=== PATIENT | male | born 1955 | race American Indian/Alaskan Native ===

== ENCOUNTER 2019-01-04 08:10 | Day surgery (SDC) | payer MEDICARE ==
[~2019-01-04 08:10] MED LIST: ceFAZolin/Water 2 GM/20 ML 2 GM/20 ML SYRINGE IV NR
[2019-01-04] MEDS ORDERED: BACTERIOSTATIC SODIUM CHLORIDE 0.9% 30 ML VIAL INFILTRATI ONE (08:57)
[2019-01-04] MEDS ORDERED: SODIUM CHLORIDE 0.9% 1000 ML 1,000 ML ONE (08:57)
[2019-01-04] MEDS ORDERED: fentaNYL 100 MCG/2 ML INJ IV PRN (09:11)
--- NOTE | 2019-01-04 09:27 | Anesthesia Day of Surgery ---
Anesthesia Day of Surgery - Day of Surgery Patient Examined: Yes Patient H&P Reviewed: Yes Patient is NPO: Yes
--- NOTE | 2019-01-04 09:27 | Anesthesia Consultation ---
Anesthesia Consult and Med Hx Date of service: 01/04/19 - Airway Anesthetic Teeth Evaluation: Poor (2 lower canines remaining; significant decay noted) ROM Head & Neck: Inadequate (moderately restricted extension) Mental/Hyoid Distance: Adequate Mallampati Class: Class III Intubation Access Assessment: Possibly Difficult - Pulmonary Exam CTA: Yes - Cardiac Exam Cardiac Exam: RRR - Pre-Operative Health Status ASA Pre-Surgery Classification: ASA4 Proposed Anesthetic Plan: General - Pulmonary Hx Smoking: Yes (quit x2wks; prev 1pk per week) SOB: Yes (with activity; chronic.. Denies orthopnea or dyspnea at rest.) Home Oxygen Therapy: No - Cardiovascular System Hx Hypertension: Yes (prior hx; currently has midodrine on med list) Hx Heart Attack/AMI: No Hx Angina: No Hx Percutaneous Transluminal Coronary Angioplasty (PTCA): No Hx Cardia Arrhythmia: No Hx Pacemaker: No Hx Internal Defibrillator: No - Central Nervous System Hx Seizures: No CVA: No Hx Psychiatric Problems: Yes (dementia) - Gastrointestinal Hx Gastroesophageal Reflux Disease: No - Endocrine Hx End Stage Renal Disease: Yes (last HD 01/03) Hx Liver Disease: No Hx Insulin Dependent Diabetes: No Hx Non-Insulin Dependent Diabetes: No Hx Hypothyroidism: Yes - Hematic Hx Anemia: Yes - Other Systems Hx Obesity: Yes - Additional Comments Anesthesia Medical History Comments: No hx anesthetic complications. Poor historian. Denies symptoms of current HF exacerbation. Will give AM dose midodrine.
[2019-01-04] MEDS ORDERED: MIDODRINE 5 MG TAB PO ONE (09:30)
[2019-01-04] MEDS ORDERED: SODIUM CHLORIDE 0.9% 500 ML 500 ML ONE (09:39)
[2019-01-04] MEDS ORDERED: BUPIVACAINE/PF (0.5%) 5 MG/1 ML 30 ML VIAL INFILTRATI ONE ×2 (09:39→14:34)
[2019-01-04] MEDS ORDERED: HEPARIN 10,000 UNITS/10 ML VIAL ONE (09:39)
[2019-01-04 09:51] LABS: Calcium 8.1 mg/dL (8.4-10.2)
[2019-01-04 09:53] LABS: Hematocrit 31.2 % (35.5-45.6); Mean Corpuscular HGB Conc 32 % (32-34); Mean Corpuscular Volume 87 fl (84-94); Platelet Count 278 K/mm3 (140-440); Red Cell Distribution Width 18.3 % (13.2-15.2)
[2019-01-04] MEDS ORDERED: SODIUM CHLORIDE 0.9% 1000 ML 1,000 ML IV SCH (10:00)
[2019-01-04 10:47] LABS: Basophils % (Manual) 0 % (0.0-1.8); Total Cells Counted 100
[2019-01-04 10:48] LABS: Anisocytosis 1+; Hypochromasia 1+; Ovalocytes 1+; Platelet Estimate Consistent w Auto; Poikilocytosis 1+; Tear Drop Cells Rare
[2019-01-04] MEDS ORDERED: fentaNYL 100 MCG/2 ML INJ ONE (12:28)
[2019-01-04] MEDS ORDERED: PROPOFOL 200 MG/20 ML VIAL IV ONE (12:29)
[2019-01-04] MEDS ORDERED: LIDOCAINE MPF (2%) 20 MG/1 ML VIAL 5 ML ONE (12:29)
[2019-01-04] MEDS ORDERED: HEPARIN 5,000 UNIT/1 ML VIAL ONE (12:30)
[2019-01-04] MEDS ORDERED: SODIUM CHLORIDE P/F VIAL 10 ML 10 ML ONE (14:32)
[2019-01-04] MEDS ORDERED: SODIUM CHLORIDE 0.9% 250ML 250 ML ONE (14:33)
[2019-01-04] MEDS ORDERED: rifAMPin 600 MG VIAL ONE (14:33)
[2019-01-04] MEDS ORDERED: HEPARIN 5,000 UNIT/1 ML VIAL IR ONE (14:33)
[2019-01-04] MEDS ORDERED: SODIUM CHLORIDE 0.9% IRR 1,000 ML BOTTLE IR ONE (14:33)
[2019-01-04] MEDS ORDERED: rifAMPin 600 MG VIAL IV ONE (14:35)
[2019-01-04] MEDS ORDERED: SODIUM CHLORIDE 0.9% P/F 10 ML VIAL IV ONE (14:36)
--- NOTE | 2019-01-04 14:46 | Fluoroscopy Report ---
Single fluoroscopic image submitted Indication: Intraoperative localization Impression: A single image of the abdomen was submitted for documentation purposes with radiology in volvement. PermCath catheter placement in the right groin with tip terminating at the level of T9/10 . Please refer to operative note for complete details. Fluoroscopic time: 11 seconds Number of fluoroscopic images: 1 Signer Name: Ebenezer Mondragon MD Signed: 01/04/2019 2:41 PM Workstation Name: [id number]
[2019-01-04] MEDS ORDERED: SODIUM CHLORIDE 0.9% IRR 1,500 ML BOTTLE IR ONE (15:10)
[2019-01-04] MEDS ORDERED: HEPARIN 10,000 UNITS/10 ML VIAL IR ONE (15:11)
[2019-01-04] MEDS ORDERED: SODIUM CHLORIDE 0.9% 250 ML IVPB IR ONE (15:12)
--- NOTE | 2019-01-04 16:05 | Short Stay Summary ---
Short Stay Documentation Date of service: 01/04/19 Narrative H&P: See H&P - History H&P: obtained from office - Allergies and Medications Current Medications: Allergies No Known Allergies Allergy (Unverified 01/04/19 09:18) Home Medications Medication Instructions Recorded Confirmed Last Taken Type Aspirin 81 mg PO DAILY 01/04/19 01/04/19 01/03/19 History Atorvastatin Calcium 40 mg PO DAILY 01/04/19 01/04/19 01/03/19 History Calcium Carb,Lactate/Vit D3 500 mg PO DAILY 01/04/19 01/04/19 01/03/19 History Camphor/Eucalyptus/Menthol TRANSDERMA DAILY 01/04/19 01/03/19 History Dimethicone TRANSDERMA DAILY 01/04/19 01/03/19 History Donepezil HCl [Donepezil HCl Odt] 5 mg PO QHS 01/04/19 01/04/19 01/03/19 History Famotidine [Pepcid] 20 mg PO DAILY 01/04/19 01/04/19 01/03/19 History Folic Acid [Folvite] 1 mg PO DAILY 01/04/19 01/04/19 01/03/19 History Levothyroxine 50 mcg PO DAILY 01/04/19 01/04/19 01/03/19 History Lexapro 10 mg PO DAILY 01/04/19 01/04/19 01/03/19 History Midodrine HCl 10 mg PO TID 01/04/19 01/04/19 01/04/19 09:41 History Povidone-Iodine [Betadine] TRANSDERMA Q8HR 01/04/19 01/03/19 History Joana-Milady Rx Tablet 1 tab PO DAILY 01/04/19 01/04/19 01/03/19 History Sevelamer Carbonate [Renvela] 800 mg PO TID 01/04/19 01/04/19 01/03/19 History hydrOXYzine 25 mg PO UNK PRN 01/04/19 01/04/19 01/03/19 History Active Medications Fentanyl (Sublimaze) 50 mcg IV Q5MIN PRN PRN Reason: Pain , Severe (7-10) Stop: 01/04/19 22:00 Cefazolin Sodium (Ancef/Sterile Water 2 Gm/20 Ml) 2 gm in 20 mls @ 80 mls/hr IV PREOP NR; Protocol Stop: 01/04/19 23:00 Sodium Chloride (Nacl 0.9% 1000 Ml) 1,000 mls @ 42 mls/hr IV DIRECT KELSEY Last Admin: 01/04/19 09:10 Dose: 42 mls/hr Documented by: - Brief post op/procedure progress note Date of procedure: 01/04/19 Pre-op diagnosis: Complications of Dialysis Access Post-op diagnosis: same Procedure: 1. Ultrasound-Guided Access Right Common Femoral Vein 2. Placement of 55 cm Palindrome Permacath 3. Radiologic Supervision with Interpretation 4. Revision of Right Arm Arteriovenous Fistula With Interposition 7 mm Bovine Artegraft Anesthesia: local, other (LMA) Surgeon: TIMOTHY SALAZAR Estimated blood loss: 50-100ml Pathology: list (right arm pseudoaneurysm) Specimen disposition: to lab Condition: stable - Disposition Condition at discharge: Good Disposition: DC-01 TO HOME OR SELFCARE Short Stay Discharge Plan Activity: other (no heavy lifting with right arm) Wound: open to air, keep clean and dry, per your surgeon's advice (do not use the right arm arteriovenous access for dialysis until cleared by vascular surgeon. Okay to use the right femoral permacath for dialysis), other (okay to shower and wash the right arm wound with soap and water but do not soak in water) Follow up with: TIMOTHY SALAZAR MD [Staff Physician] - 14 Days Prescriptions: HYDROcodone/APAP 7.5-325 [Bowman 7.5/325] 1 each PO Q6HR PRN #40 tablet PRN Reason: Pain
--- NOTE | 2019-01-04 16:06 | Operative Report ---
Operative Report Operative Report: Date of Procedure: 01/04/2019 Pre-operative Diagnosis: Complications of Dialysis Access Post-operative Diagnosis: Same Procedure(s): 1. Ultrasound-Guided Access Right Common Femoral Vein 2. Placement of 55 cm Palindrome Permacath 3. Radiologic Supervision with Interpretation 4. Revision of Right Arm Arteriovenous Fistula With Interposition 7 mm Bovine Artegraft Surgeon: Rudy Barragan M.D. Preschool Adviser: None Anesthesia: Local/LMA EBL: 100 mL Counts: Correct Complications: None Condition: Stable Findings: Right femoral permacath placement with distal tip and right atrium and no evidence of pneumothorax. Successful revision of right arm arteriovenous fistula with palpable thrill at the completion of the case. Specimen: Right arm AV fistula pseudoaneurysm sent to pathology. Indication: The patient is a 63-year-old male with history of end-stage renal disease who is on hemodialysis through a right arm arteriovenous fistula with a large pseudoaneurysm that has an area of ulceration. He had a fistulogram in the outpatient setting to relieve an area of stenosis in the cephalic arch and relieve the pressure from the pseudoaneurysm. He now presents for operative revision of the fistula and placement of a permacath to use for dialysis until the incision heals. He was given the risk, benefits, and alternative procedures and consented to the procedure. Description of Procedure: The patient was brought to the operating room and laid in supine position. After timeout was performed his right groin and thigh were prepped and draped in normal sterile fashion. Ultrasound was used to identify the right common femoral vein and confirmed patency. Once patency was confirmed the overlying skin and soft tissue was anesthetized with lidocaine and a small stab incision was created using an 11 blade. Micropuncture technique was used to access the vein using ultrasound guidance and a 0.035 J-wire was advanced into the central venous system under fluoroscopy. An exit site on the mid thigh was chosen and anesthetized with lidocaine and the tract was then anesthetized with lidocaine. A tunneler was then used to tunnel from the exit site on the thigh to the entry site in the groin and the tunneler was then connected to the permacath and the permacath was pulled retrograde through the tunnel. The micropuncture sheath was removed and the entry site tract was then serially dilated until a 16 Persian peel-away sheath was advanced by Seldinger technique. The inner dilator and wire were removed and the permacath was inserted. The safe sheath was then peeled away while advancing the permacath and the position of the distal tip was checked which was in the right atrium. The distal tip of the catheter was cut and the ports were connected. Both ports were aspirated and flushed and prominent with the appropriate amount of heparin. The entry site of the groin was then closed in 2 layers with 3-0 Vicryl in the deep dermal layer and 4-0 Monocryl in the subcuticular layer then dressed with Dermabond. The catheter was secured to the skin using 2-0 Ethilon in interrupted fashion and then dressed with a sterile dressing. The patient tolerated that portion of the procedure well. The sterile field was then broken and the patient's right arm was then prepped and draped in normal sterile fashion. A longitudinal incision was made on the medial aspect of the pseudoaneurysm and extended slightly proximal and distal to the pseudoaneurysm and carried down to the pseudoaneurysm using sharp dissection. Normal portion of the fistula was dissected circumferentially both proximal distal to the pseudoaneurysm controlled with vessels. The pseudoaneurysm was then dissected circumferentially and then the outflow and inflow of the fistula was controlled with angled DeBakey clamps and the aneurysmal portion of the fistula was transected and passed off the field. The ends of the remaining portion of the fistula were beveled and then a Meg- Wick tunneler was used to tunnel lateral to the incision and a 7 mm Bovine Artegraft was connected to the tunneler and pulled through the tunnel. The Artegraft was beveled and then an end-to-end anastomosis between the Artegraft and the arterial inflow of the fistula was created using 2 6-0 Prolene's in running fashion. After creating the anastomosis the outflow of the graft was clamped and the clamps were released from the arterial inflow of the fistula. Quick clot was then wrapped around the anastomosis to achieve hemostasis. I then cut the graft to length and beveled the end and created an end-to-end anastomosis between the graft and the venous outflow of the fistula using 2 6-0 Prolene's in running fashion. Prior to completing the anastomosis I flushed the inflow of the graft as well as the outflow of the fistula and then flushed both with heparinized saline. I completed the anastomosis and then released all clamps allowing flow through the graft which had a palpable thrill. I then used curved Mayos to resect the redundant skin making sure to include the area that had previously contain the ulceration. Hemostasis within the wound was achieved with a combination of direct pressure, cautery, quick clot, and Alexandre. Once hemostasis was achieved the wound was anesthetized with 0.5% Marcaine and closed in 2 layers using 3-0 Vicryl and running fashion in the deep dermal layer and 4- 0 Monocryl in a running fashion subcuticular layer and then dressed with Dermabond. The patient tolerated the procedure well. All sponge, needle, and instrument counts were correct. The patient was taken to the recovery area in stable condition.
[2019-01-04 17:48] VITALS: BP 118/58
--- NOTE | 2019-01-04 18:18 | Post Anesthesia Evaluation ---
- Post Anesthesia Evaluation Patient Participated: Yes Airway Patent: Yes Stable Respiratory Function: Yes Nausea/Vomiting: No Temp > 96.8F: Yes Pain Manageable: Yes Adequeate Hydration: Yes Anesthesia Complications: No Block Receding Appropriately: Not Applicable Patient on Ventilator: No
== END 2019-01-04 08:11 | disposition home or self-care (01) ==
LOC: OR 08:10
PROVIDERS: ATTEND Surgery Vascular Surgery
DX: T82.898A Other specified complication of vascular prosthetic devices, implants and grafts, initial encounter (principal); I12.0 Hypertensive chronic kidney disease with stage 5 chronic kidney disease or end stage renal disease; N18.6 End stage renal disease; E03.9 Hypothyroidism, unspecified; D64.9 Anemia, unspecified; E66.9 Obesity, unspecified; F17.210 Nicotine dependence, cigarettes, uncomplicated; K21.9 Gastro-esophageal reflux disease without esophagitis; Z68.31 Body mass index [BMI] 31.0-31.9, adult; Z96.642 Presence of left artificial hip joint; Z98.890 Other specified postprocedural states; Z79.899 Other long term (current) drug therapy; Z79.82 Long term (current) use of aspirin; Y92.89 Other specified places as the place of occurrence of the external cause; Y83.8 Other surgical procedures as the cause of abnormal reaction of the patient, or of later complication, without mention of misadventure at the time of the procedure
CPT/HCPCS: 36415; 36558; 36832; 77001; 80048; 85007; 85025; 88304; C1750; C1768; C1769; J0690; J1644; J2704; J3010; J3490; J7030; J7040; J7050; 88311